=== PATIENT | male | born 1955 | race Caucasian/White ===

== ENCOUNTER 2019-02-07 12:18 | Emergency (ER) | payer MEDICAID, OTHER ==
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
[2019-02-07 14:00] LABS: PLATELET COUNT 215 10^3/uL (150-400)
[2019-02-07] MEDS ORDERED: ACETAMINOPHEN 325 MG TAB ONE (15:05)
[2019-02-07] MEDS ORDERED: ACETAMINOPHEN 325 MG TAB PO ONE (15:18)
[2019-02-07 15:25] VITALS: BP 131/58
== END 2019-02-07 15:20 | disposition home or self-care (01) ==
LOC: EDUNIT#
DX: S06.0X0A Concussion without loss of consciousness, initial encounter (principal); S16.1XXA Strain of muscle, fascia and tendon at neck level, initial encounter; V49.49XA Driver injured in collision with other motor vehicles in traffic accident, initial encounter; Y92.410 Unspecified street and highway as the place of occurrence of the external cause
CPT/HCPCS: G0480; L0172